=== PATIENT | male | born 1960 | race Caucasian/White ===

== ENCOUNTER 2016-09-21 19:24 | Emergency (ER) | payer OTHER ==
[~2016-09-21] VITALS: Ht 177.8 cm; Wt 86.6 kg
--- NOTE | 2016-09-21 19:51 | ED GI/GU/ABDOMINAL COMPLAINT ---
History of Present Illness General Chief Complaint: Abdominal Pain/Flank Pain Stated Complaint: ABD PAIN, +N/V Source: patient, family, old records Exam Limitations: no limitations Vital Signs & Intake/Output Vital Signs & Intake/Output Vital Signs Date Time Temp Pulse Resp B/P Pulse O2 O2 Flow FiO2 Ox Delivery Rate 09/21 2134 96.7 71 18 152/91 96 Room Air 09/21 2044 Room Air 09/219 98.6 100 16 198/110 100 Room Air Allergies Coded Allergies: Sulfa (Sulfonamide Antibiotics) (HIVES, RASH - FACE, MOUTH 09/21/16) amlodipine (LEGS WERE SWELLING, SEVERE HEARTBURN 09/21/16) Reconcile Medications Cyclobenzaprine HCl 10 MG TABLET 1 TAB PO PRN MUSCLE RELAXER (Reported) Ibuprofen 600 MG TABLET 1 TAB PO PRN PAIN/INFLAMMATION (Reported) with food Multivitamin (Multi-Day Vitamins) 1 EACH TABLET 1 TAB PO DAILY SUPPLEMENT ( Reported) Ondansetron (Zofran Odt) 4 MG TAB.RAPDIS 1 TAB SL TID PRN NAUSEA Pantoprazole Sodium (Protonix) 40 MG TABLET.DR 1 TAB PO DAILY GERD Ranitidine HCl (Heartburn Relief) 150 MG TABLET 1 TAB PO PRN GI (Reported) Tramadol HCl 50 MG TABLET 1 TAB PO PRN PAIN (Reported) Triage Note: PT TO ED FOR TWO HOURS OF N/V, REPORTING HE FELT NORMAL ALL DAY TODAY, TRIED TO TAKE A SIP OF MILK AND "IT WAS JUST WHITE FOAM THAT CAME OUT" REPORTS LNBM THIS AM, REPORTING INCREASING FLATULANCE AND BURPING FOR APPROX 2 HOURS TOO. Triage Nurses Notes Reviewed? yes Onset: Abrupt Duration: hour(s): (2), better, constant, waxing and waning Timing: recent history Quality/Severity: aching, burning, BLOATING Severity Numbers: 5 Location: generalized abdomen Radiation: no radiation Activities at Onset: eating Prior Abdominal Problems: similar symptoms (OVER THE PAST 6-7 MONTHS) No Modifying Factors: none Associated Symptoms: nausea/vomiting HPI: 56-year-old male with history of hypertension presents emergency room with his for evaluation complaining of a 2 hour history of sudden onset of bloating sudden and frequent belching nausea vomiting that came on after he had a sip of milk with dinner. Patient states he had an episode of vomiting prior to arrival and is feeling improved. He denies any diarrhea black or bloody stools. No abdominal pain at this time. His states that he has had similar episodes in the past attributed to reflux. The patient denies chest pain shortness of breath. No hematemesis. Patient's abdominal surgeries significant for a hernia repair, and testicular tumor removal. No fever no chills no sick contacts with similar symptoms. The patient does not smoke he reports a social alcohol use however denies recent use. The patient himself states she's had similar episodes in the past he has never been seen by GI. the patient had corned beef and cabbage at lunchtime today The patient is known to be hypertensive denies headache vision changes palpitations dizziness lightheadedness. He states he was taken off the amlodipine he was on the past 2 to leg swelling that has since resolved and is scheduled to see his primary care physician this week to begin a new blood pressure medication (JAQUELINE HUBBARD) Past History Travel History Traveled to [place] past 21 day No Medical History Any Pertinent Medical History? see below for history Neurological: NONE EENT: NONE Cardiovascular: hypertension Respiratory: NONE Gastrointestinal: GERD Hepatic: NONE Renal: NONE Musculoskeletal: CHRONIC BACK PAIN Psychiatric: NONE Endocrine: NONE Blood Disorders: NONE Cancer(s): NONE Surgical History Surgical History: HERNIA REPAIR, TESTICULAR TUMOR REMOVAL, BACK SURGERY Psychosocial History What is your primary language Panamanian Tobacco Use: Never used ETOH Use: denies use Illicit Drug Use: denies illicit drug use Family History Hx Contributory? No (JAQUELINE HUBBARD) Review of Systems Review of Systems Constitutional: Reports: see HPI. All Other Systems: Reviewed and Negative Comments Review of systems: See HPI, All other systems negative. Constitutional, no chills no fever, no malaise HEENT: no sore throat no congestion, Cardiovascular: No chest pain , no palpitation Skin, no jaundice no rashes, no change in skin Respiratory: No dyspnea no cough no sputum GI: nausea vomiting, no diarrhea, no bloating/constipation : No dysuria Muscle skeletal: No joint pain, no back pain, no neck pain, Neurologic: No numbness no headache Psych: No stress Heme/endocrine: No bruising no bleeding Immunology: No lymphadenopathy (JAQUELINE HUBBARD) Physical Exam Physical Exam General Appearance: well developed/nourished, alert, awake Gastrointestinal: normal bowel sounds, soft, non-tender Comments: Well-developed well-nourished person in no acute distress HEENT: Normal EENT exam; PERRL, EOMI, n HEAD is atraumatic. moist mucous membranes. Neck: Supple, normal range of motion Back: Nontender, no CVA tenderness. Full range of motion Cardiovascular: Regular rate and rhythms no murmurs rubs Respiratory: No respiratory distress. Patient speaking in full complete sentences. Breath sounds clear to auscultation bilaterally: NO W/R/R Abdomen: Soft, nontender nondistended, no appreciable organomegaly. Normal bowel sounds. No rebound/guarding, No appreciable enlargement of the abdominal aorta, No ascites. NEG MURPHYS SIGN, NO RLQ TENDERNESS Extremity: No edema, full range of motion of extremities Neuro: Alert oriented x3, motor sensory normal, There were no obvious focal neurologic abnormalities. Skin: No appreciable rash on exposed skin, skin is warm and dry. Psych: Mood and affect is normal, memory and judgment is normal. Core Measures ACS in differential dx? Yes Severe Sepsis Present: No Septic Shock Present: No (KATLYN PEARL,JAQUELINE) Progress Differential Diagnosis: AAA, AMI, appendicitis, biliary colic, bowel obstruction , colon cancer, cholecystitis, diverticulitis, gastritis, hepatitis, hernia, inflamm bowel dis, Charity-Dominique tear, pancreatitis, peptic ulcer, PUD/GERD, perforated viscous, SBO, MALIGNANCY GASTROENTERITIS Plan of Care: Orders Procedure Date/time Status TROPONIN LEVEL 09/21 1940 Complete LIPASE 09/21 1940 Complete HEPATIC FUNCTION PANEL 09/21 1940 Complete CBC WITHOUT DIFFERENTIAL 09/21 1940 Complete BASIC METABOLIC PANEL 09/21 1940 Complete AMYLASE 09/21 1940 Complete EKG 09/21 1940 Active Laboratory Tests 09/21/162021: Anion Gap 11, Estimated GFR > 60, BUN/Creatinine Ratio 23.3, Glucose 102 H, Calcium 9.6, Total Bilirubin 0.7, Direct Bilirubin 0.6 H, AST 74 H, ALT 124 H , Alkaline Phosphatase 46, Troponin I 0.02, Total Protein 7.6, Albumin 4.7, Amylase 41, Lipase 69, CBC w Diff NO MAN DIFF REQ, RBC 4.87, MCV 92.4, MCH 31.8 H, RDW 13.5, MPV 8.4, Gran % 77.0 H, Lymphocytes % 16.1 L, Monocytes % 6.2, Eosinophils % 0.5, Basophils % 0.2, Absolute Granulocytes 7.5 H, Absolute Lymphocytes 1.6, Absolute Monocytes 0.6, Absolute Eosinophils 0.1, Absolute Basophils 0, PUBS MCHC 34.4 Labs ordered patient medicated with Pepcid 20 IV Zofran 4 IV IV fluids. I discussed with him the possibility of obtaining a CAT scan at this time which both patient and his would rather hold off on at this time we will continue to monitor case was discussed with Dr. Reddy. 09/21/2016 10:02:17 PM patient reports symptoms have completely resolved we'll Pepcid Zofran. Feeling well tolerating by mouth challenge abdomen remained soft nontender. I discussed with him at length all of his results I discussed with the patient at length all of their results. I had an extensive conversation regarding need for close follow up with their primary care physician this week-whom he is scheduled to see on Wednesday as well as return precautions. I answered all of their questions, they feel comfortable with the plan and follow-up care. The patient will follow up with GI Dr. Ge. Prescription for Protonix Zofran provided comfortable with plan. Discussed with the patient risks and arms of elevated blood pressure again he is declining prescription for medication stating that he is scheduled to see his primary care physician on Wednesday regarding the same I discussed the medications that they will receive with the patient. I gave them signs and symptoms that could indicate an adverse reaction. I have advised them to limit their activities until they can see how they respond to the medication. (JAQUELINE HUBBARD) Initial ED EKG: NSR AT 80, NO ACUTE ST SEG CHANGES, NORMAL AXIS Prior EKG: unchanged (11/2003) (JAQUELINE HUBBARD) Departure Departure Time of Disposition: 2200 Disposition: HOME OR SELF CARE Condition: Stable Clinical Impression Primary Impression: Gastritis Secondary Impressions: Abdominal pain Referrals: Manoj EDWARDS MD (PCP/Family) JESSE GE MD Additional Instructions: Follow-up with your primary care physician as scheduled this week as well as stewardesses teacher Dr. Ge. Protonix as discussed Zofran as needed for nausea. These prescriptions were sent here pharmacy. [place] diet no fatty spicy greasy foods. Return anytime sooner with any concerns or worsening of your symptoms Departure Forms: Customer Survey General Discharge Information Prescriptions: Current Visit Scripts Pantoprazole Sodium (Protonix) 1 TAB PO DAILY #14 TAB Ondansetron (Zofran Odt) 1 TAB SL TID PRN NAUSEA #10 TAB (JAQUELINE HUBBARD) PA/PROFESSOR OF PHYSICAL EDUCATION Co-Sign Statement Statement: ED Attending supervision documentation- [] I saw and evaluated the patient. I have also reviewed all the pertinent lab results and diagnostic results. I agree with the findings and the plan of care as documented in the PA's/PROFESSOR OF PHYSICAL EDUCATION's documentation. [x] I have reviewed the ED Record and agree with the PA's/PROFESSOR OF PHYSICAL EDUCATION's documentation. [] Additions or exceptions (if any) to the PAs/PROFESSOR OF PHYSICAL EDUCATION's note and plan are summarized below: [] (DRU FUENTES,ZACHARY Boswell)
[2016-09-21 20:40] LABS: ABSOLUTE BASOPHIL COUNT 0 /CUMM (0.0-0.2); ABSOLUTE EOSINOPHIL COUNT 0.1 /CUMM (0.0-0.7); ABSOLUTE GRANULOCYTE CT 7.5 /CUMM (1.4-6.5); ABSOLUTE LYMPH COUNT 1.6 /CUMM (1.2-3.4); ABSOLUTE MONOCYTE COUNT 0.6 /CUMM (0.10-0.60); BASOPHIL % 0.2 % (0.0-2.0); EOSINOPHIL % 0.5 % (0-5); MEAN CORPUSCULAR HGB 31.8 PG (27.0-31.0); MEAN CORPUSCULAR HGB CONC 34.4 G/DL (33.0-37.0); MEAN CORPUSCULAR VOLUME 92.4 FL (80.0-94.0); MEAN PLATELET VOLUME 8.4 FL (7.4-10.4); PLATELET COUNT 224 /CUMM (130-400); RBC DISTRIBUTION WIDTH 13.5 % (11.5-14.5); RED BLOOD CELL CT 4.87 /CUMM (4.70-6.10); WHITE BLOOD CELL COUNT 9.7 /CUMM (4.8-10.8)
[2016-09-21] MEDS ORDERED: TRAMADOL HCL50 M1 PO (20:52)
[2016-09-21] MEDS ORDERED: MULTI-DAY VITA1 EACH PO (20:53)
[2016-09-21] MEDS ORDERED: CYCLOBENZAPRINE10 M1 PO (20:53)
[2016-09-21] MEDS ORDERED: IBUPROFEN600 M1 PO (20:53)
[2016-09-21] MEDS ORDERED: HEARTBURN RELI150 MG PO (20:55)
[2016-09-21 21:35] VITALS: BP 152/91
[2016-09-21] MEDS ORDERED: ZOFRAN ODT4 M1 SL (22:04)
[2016-09-21] MEDS ORDERED: PROTONIX40 M3 PO (22:04)
[2016-12-21] MEDS ORDERED: LISINOPRIL20 M1 PO (09:27)
[2016-12-21] MEDS ORDERED: PENICILLIN V P500 M1 PO (09:28)
[2016-12-24] MEDS ORDERED: PERCOCET 5-3251 EACH PO (05:30)
== END 2016-09-21 22:13 ==
LOC: ERH 19:24
PROVIDERS: Pediatrics
DX: K29.70 Gastritis, unspecified, without bleeding (principal)
CPT/HCPCS: 93005; 93010; 96361; 96374; 96375; J2405

== ENCOUNTER 2016-12-25 05:11 | Inpatient (IN) | payer OTHER ==
[~2016-12-25] VITALS: Ht 177.8 cm; Wt 83.9 kg
[~2016-12-25 05:11] MED LIST: CYCLOBENZAPRINE10 M1 PO; HEARTBURN RELI150 MG PO; IBUPROFEN600 M1 PO; LISINOPRIL20 M1 PO; MULTI-DAY VITA1 EACH PO; PENICILLIN V P500 M1 PO; PERCOCET 5-3251 EACH PO; PROTONIX40 M3 PO; TRAMADOL HCL50 M1 PO; ZOFRAN ODT4 M1 SL
--- NOTE | 2016-12-25 05:23 | NUR ---
PT TO ED C/O SHARP ABD PAIN LOW RIGHT SIDE AND ACING PRESSURE IN THE EPIGASTRIC AREA "SINCE NOON YESTERDAY" WAS SEEN HERE NIGHT BEFORE LAST, DX WITH KIDNEY STONES. HAS BEEN TAKING PERCOCETS, STATES THEY ARE MAKING UPPER ABDOMINAL PAIN WORSE. +NAUSEA, DENIES VOMITTING DIARRHEA. LAST BM WAS LAST EVENING. STATES HENATURIA IS IMPROVING
--- NOTE | 2016-12-25 05:24 | NUR ---
IV ACCESS ESTABLISHED BY LUIZ WILSON H 20G LH PT C/O FEELING BLOATED AND STATES "HAVEN'T SLEPT IN A WEEK"
--- NOTE | 2016-12-25 05:31 | NUR ---
PER PT SEEN WEDNESDAY WELL APPEARS UNCOMF BREATHING THROUGH PURSED LIPS/.
--- NOTE | 2016-12-25 06:05 | NUR ---
Emergency Dept UC Admit Note: To be admitted to [facility] by DR. VALLE with ASTHMA EXACERBATION, HYPOXIA as the diagnosis, to TELE 1NO #[id number] location. Nursing Regional Extension Service Specialist and admitting notified 12/25/16 at 0524
--- NOTE | 2016-12-25 06:06 | NUR ---
BLOODWORK DRAWN(1SST; 1 PINK, 1 JAUREGUI, 1 BLUE, 1. LAV) SPECIMENS SENT TO LAB.
[2016-12-25 06:18] LABS: ABSOLUTE BASOPHIL COUNT 0 /CUMM (0.0-0.2); ABSOLUTE EOSINOPHIL COUNT 0.1 /CUMM (0.0-0.7); ABSOLUTE GRANULOCYTE CT 4.3 /CUMM (1.4-6.5); ABSOLUTE MONOCYTE COUNT 0.8 /CUMM (0.10-0.60); BASOPHIL % 0.3 % (0.0-2.0); EOSINOPHIL % 1.1 % (0-5); GRANULOCYTE % 69.8 % (42.2-75.2); HEMATOCRIT 38.3 % (42-52); MEAN CORPUSCULAR HGB 31.4 PG (27.0-31.0); MEAN CORPUSCULAR HGB CONC 34.2 G/DL (33.0-37.0); MEAN CORPUSCULAR VOLUME 91.8 FL (80.0-94.0); MEAN PLATELET VOLUME 7.6 FL (7.4-10.4); PLATELET COUNT 233 /CUMM (130-400); RBC DISTRIBUTION WIDTH 12.4 % (11.5-14.5); RED BLOOD CELL CT 4.18 /CUMM (4.70-6.10); WHITE BLOOD CELL COUNT 6.2 /CUMM (4.8-10.8)
--- NOTE | 2016-12-25 06:35 | ED GI/GU/ABDOMINAL COMPLAINT ---
History of Present Illness General Chief Complaint: Abdominal Pain/Flank Pain Stated Complaint: ABD PAIN HX KIDNEY STONES SEEN HERE YESTERDAY Source: patient, family, old records Exam Limitations: no limitations Vital Signs & Intake/Output Vital Signs & Intake/Output Vital Signs Date Time Temp Pulse Resp B/P B/P Pulse O2 O2 Flow FiO2 Mean Ox Delivery Rate 12/251 98.0 67 20 140/78 98 Room Air 12/25 1833 75 140/70 12/25 1419 97.8 73 18 142/70 97 Room Air 12/25 1216 160/80 12/25 1001 98.4 70 20 162/98 97 Room Air 12/25 0840 97.9 66 18 154/85 98 Room Air 12/25 0640 78 20 172/94 98 Room Air 12/25 0517 98.1 73 18 170/99 100 Room Air Allergies Coded Allergies: NSAIDS (Non-Steroidal Anti-Inflamma (PMH OF GASTRIC ULCER 12/25/16) Sulfa (Sulfonamide Antibiotics) (HIVES, RASH - FACE, MOUTH 09/21/16) amlodipine (LEGS WERE SWELLING, SEVERE HEARTBURN 09/21/16) Triage Note: PT TO ED C/O SHARP ABD PAIN LOW RIGHT SIDE AND ACING PRESSURE IN THE EPIGASTRIC AREA "SINCE NOON YESTERDAY" WAS SEEN HERE NIGHT BEFORE LAST, DX WITH KIDNEY STONES. HAS BEEN TAKING PERCOCETS, STATES THEY ARE MAKING UPPER ABDOMINAL PAIN WORSE. +NAUSEA, DENIES VOMITTING DIARRHEA. LAST BM WAS LAST EVENING. STATES HENATURIA IS IMPROVING Triage Nurses Notes Reviewed? yes Onset: Just prior to arrival Duration: hour(s):, constant, continues in ED Timing: recent history Quality/Severity: fullness, severe Location: epigastric, generalized abdomen Radiation: chest, epigastric Activities at Onset: after Percocet Past Sexual History: Unobtainable at this time Modifying Factors: Worsens With: palpation. Associated Symptoms: abdominal pain, loss of appetite, nausea/vomiting HPI: Several hours prior to admission patient took Percocet for epigastric pain described as aching constant nonradiating not obtaining relief so he took another making the pain worse with associated bloating and distention radiating to his chest and throat. He denies fever chills shortness of breath headache dysuria rash bleeding. (DERRICK FUENTES,GERALDO) Reconcile Medications Cyclobenzaprine HCl 10 MG TABLET 1 TAB PO PRN MUSCLE RELAXER (Reported) Lisinopril 20 MG TABLET 1 TAB PO DAILY HEART (Reported) Multivitamin (Multi-Day Vitamins) 1 EACH TABLET 1 TAB PO DAILY SUPPLEMENT ( Reported) Ondansetron (Zofran Odt) 4 MG TAB.RAPDIS 1 TAB SL TID PRN NAUSEA Oxycodone HCl/Acetaminophen (Percocet 5-325 MG Tablet) 5 MG-325 MG TABLET 1 TAB PO 4XDP PRN PAIN TEN...[id number] Pantoprazole Sodium (Protonix) 40 MG TABLET.DR 1 TAB PO DAILY GERD Tramadol HCl 50 MG TABLET 1 TAB PO PRN PAIN (Reported) (CORA FUENTES,SPENCER) Past History Travel History Traveled to [place] past 21 day No Medical History Any Pertinent Medical History? see below for history Neurological: NONE EENT: NONE Cardiovascular: hypertension Respiratory: NONE Gastrointestinal: GERD, ULCER Hepatic: NONE Renal: nephrolithiasis Musculoskeletal: CHRONIC BACK PAIN Psychiatric: NONE Endocrine: NONE Blood Disorders: NONE Cancer(s): NONE Surgical History Surgical History: HERNIA REPAIR, TESTICULAR TUMOR REMOVAL, BACK SURGERY Psychosocial History What is your primary language Albanian Tobacco Use: Current Daily Use Daily Tobacco Use Amount/Type: => 5 Cigarettes daily ETOH Use: occasional use Illicit Drug Use: denies illicit drug use Family History Hx Contributory? No (GERALDO MEZA MD) Review of Systems Review of Systems Constitutional: Reports: see HPI, malaise. EENTM: Reports: no symptoms. Respiratory: Reports: no symptoms. Cardiovascular: Reports: no symptoms. GI: Reports: see HPI, abdominal pain, bloating, nausea. Genitourinary: Reports: no symptoms. Musculoskeletal: Reports: no symptoms. Skin: Reports: no symptoms. Neurological/Psychological: Reports: no symptoms. Hematologic/Endocrine: Reports: no symptoms. Immunologic/Allergic: Reports: no symptoms. All Other Systems: Reviewed and Negative (GERALDO MEZA MD) Physical Exam Physical Exam General Appearance: well developed/nourished, alert, awake, anxious, severe distress, obese Head: atraumatic, normal appearance Eyes: Bilateral: normal appearance, PERRL, EOMI, normal inspection. Ears, Nose, Throat, Mouth: hearing grossly normal, moist mucous membrane Neck: normal inspection, supple, full range of motion, normal alignment Respiratory: normal breath sounds, chest non-tender, no respiratory distress, quiet respiration, lungs clear Cardiovascular: regular rate/rhythm, normal peripheral pulses, norml femoral pulses equa Peripheral Pulses: 4+ carotid (R), 4+ carotid (L) Gastrointestinal: normal bowel sounds, soft, distention, tenderness (diffuse/ epigastric) Male Genitals: normal genitalia, normal prostate Back: normal inspection, normal range of motion Extremities: normal range of motion, no ligament instability Neurologic/Psych: no motor/sensory deficits, awake, alert, oriented x 3, normal gait, normal mood/affect, fur vault attendant II-XII nml as tested Skin: intact, normal color, warm/dry Core Measures ACS in differential dx? Yes ASA ordered for poss ACS? No-ACS ruled out, No-other contraindication Severe Sepsis Present: No Septic Shock Present: No (DERRICK FUENTES,GERALDO) Progress Differential Diagnosis: biliary colic, bowel obstruction, gastritis, PUD/GERD Plan of Care: Orders Procedure Date/time Status Nothing by Mouth 12/25 L Active Teach/Educate 12/25 1034 Active Pain Treatment and Response 12/25 1034 Active Nutritional Intake, Monitor 12/25 1034 Active Isolation 12/25 1034 Active Patient Care Conference 12/25 1034 Active Activity/Ambulation 12/25 1034 Active Pathway - chart 12/25 0922 Active House Staff 12/25 0922 Active Patient Data 12/25 0922 Active Code Status 12/25 0922 Active Patient Data 12/25 0915 Active ED Holding Orders 12/25 0913 Active Admit to inpatient 12/25 0913 Active Vital Signs 12/25 0913 Active Code Status 12/25 0913 Complete Add-on Test (ER Only) 12/25 0847 Active Add-on Test (ER Only) 12/25 0626 Active URINALYSIS 12/25 0621 Complete EKG 12/25 0620 Active TROPONIN LEVEL 12/25 0600 Complete LIPID PANEL 12/25 0600 Complete LIPASE 12/25 0541 Complete COMPREHENSIVE METABOLIC PANEL 12/25 0541 Complete CBC WITHOUT DIFFERENTIAL 12/25 0541 Complete VTE Mechanical Prophylaxis 12/25 UNK Active Vital Signs 12/25 UNK Complete MISTAKE 12/25 UNK Active Intake & Output 12/25 UNK Active PHARMACY COMMUNICATION FORM 12/25 UNK Active MISSING MEDICATION FORM 12/25 UNK Active Current Medications Sig/Jessica Start time Last Medication Dose Stop Time Status Admin Lisinopril 20 MG 1900 12/25 1900 AC 12/25 (Prinivil) 1833 Enoxaparin Sodium 40 MG DAILY 12/25 1120 AC 12/25 (Lovenox) 1523 Hydromorphone HCl 1 MG Q4P PRN 12/25 1000 AC 12/25 (Dilaudid) 1625 Ondansetron HCl 4 MG Q6P PRN 12/25 1000 AC (Zofran) Pantoprazole Sodium 40 MG DAILY 12/25 1000 AC 12/25 (Protonix) 1523 Dextrose/Sodium 1,000 ML Q6H 12/25 0915 AC 12/25 Chloride 1834 (D5W-1/2 Normal Saline 1000ML) Laboratory Tests 12/25/16 0630: Urine Color YEL, Urine Clarity CLEAR, Urine pH 7.5, Ur Specific Treece 1.015, Urine Protein NEG, Urine Ketones TRACE H, Urine Nitrite NEG, Urine Bilirubin NEG, Urine Urobilinogen 1.0, Ur Leukocyte Esterase NEG, Ur Microscopic EXAM NOT REQUIRED, Urine Hemoglobin NEG, Urine Glucose NEG 12/25/16 0600: Anion Gap 9, Estimated GFR > 60, BUN/Creatinine Ratio 15.7, Glucose 113 H, Calcium 8.4, Total Bilirubin 0.7, AST 55, ALT 105 H, Alkaline Phosphatase 62, Troponin I < 0.01, Total Protein 6.4, Albumin 3.8, Globulin 2.6, Albumin/ Globulin Ratio 1.5, Triglycerides 102, Cholesterol 121, LDL Cholesterol, Calc 78 , HDL Cholesterol 23 L, Cholesterol/HDL Ratio 5 H, Lipase 1189 H, CBC w Diff NO MAN DIFF REQ, RBC 4.18 L, MCV 91.8, MCH 31.4 H, RDW 12.4, MPV 7.6, Gran % 69.8, Lymphocytes % 16.1 L, Monocytes % 12.7 H, Eosinophils % 1.1, Basophils % 0.3, Absolute Granulocytes 4.3, Absolute Lymphocytes 1.0 L, Absolute Monocytes 0.8 H, Absolute Eosinophils 0.1, Absolute Basophils 0, PUBS MCHC 34.2 7:15 AM SIGNED OUT TO ME PENDING U/S, ADMISSION FOR PANCREATITIS (CORA FUENTES,SPENCER) Initial ED EKG: normal axis, normal intervals, normal p-waves, normal QRS complex, normal sinus rhythm, no ST T wave changes Prior EKG: unchanged Rhythm Strip: normal sinus rhythm Hand-Off Endorsed To: SPENCER SHEPHERD MD Endorsed Time: 0700 Pending: ultrasound (GERALDO MEZA MD) Diagnostic Imaging: Viewed by Me: Ultrasound. Discussed w/RAD: Ultrasound. Radiology Impression: PATIENT: JUAN GUERRA JR PRESENT AGE: 56 PATIENT ACCOUNT NO: [id number] : 61 LOCATION: [facility] ORDERING PHYSICIAN: GERALDO MEZA MD SERVICE DATE: 12/25/16 EXAM TYPE: US - US-LIMITED ABDOMEN EXAMINATION: US ABDOMEN LIMITED CLINICAL INFORMATION: Epigastric pain, lipase 1200.. COMPARISON: CT abdomen and pelvis 12/24/2012 TECHNIQUE: Real-time imaging of the right upper quadrant abdominal viscera. FINDINGS: PANCREAS: The visualized pancreatic body is unremarkable, the remainder of the pancreas is obscured by bowel gas. No definite peripancreatic fluid collection is identified. LIVER: There is diffuse increased liver parenchymal echogenicity, consistent with hepatic steatosis. There is a focal area in the right lobe of the liver adjacent to the gallbladder fossa measuring approximately 1.5 x 1.2 x 0.9 cm which may represent focal fatty sparing. The liver is normal in size and contour. No biliary ductal dilatation. GALLBLADDER: The gallbladder is physiologically distended with echogenic bile. No wall thickening or pericholecystic fluid is identified. COMMON BILE DUCT: Normal in caliber measuring 0.4 cm in diameter. RIGHT KIDNEY: There is a 1.3 x 1.0 x 1.2 cm cyst in the lower pole of the right kidney. No hydronephrosis. No renal calculi or focal parenchymal lesions. The kidney measures 11.2 cm in maximum dimension. FREE FLUID: None. IMPRESSION: 1. Limited visualization of the pancreas due to overlying bowel gas. No large peripancreatic fluid collection is identified. 2. Hepatic steatosis with likely focal geographic region of fatty sparing adjacent to the gallbladder fossa. 3. The gallbladder is filled with echogenic material likely representing sludge. DICTATED BY: ARTEMIO TINOCO MD DATE/TIME DICTATED:12/25/16817 MEAT SERVICE TEAM MEMBER:NATHEN DATE/TIME TRANSCRIBED:12/25/16817 CONFIDENTIAL, DO NOT COPY WITHOUT APPROPRIATE AUTHORIZATION. <Electronically signed in Other Vendor System> SIGNED BY: ARTEMIO TINOCO MD 12/25/16 0830 (SPENCER SHEPHERD MD) Departure Departure Disposition: STILL A PATIENT Condition: Stable Clinical Impression Primary Impression: Pancreatitis Qualifiers: Chronicity: acute Pancreatitis type: unspecified pancreatitis type Acute pancreatitis complication: unspecified Qualified Code: K85.90 - Acute pancreatitis without necrosis or infection, unspecified Referrals: Manoj EDWARDS MD (PCP/Family) Departure Forms: Customer Survey General Discharge Information (DERRICK FUENTES,GERALDO) Departure Time of Disposition: 911 Admission Note Spoke With: MELISSA DAMON MD Documentation of Exam: Documentation of any treatments & extenuating circumstances including Concerns Regarding Discharge (functional status, medication knowledge or non-compliance, living conditions, etc.) that warrant an admission rather than observation: [NPO , IV FLUIDS, PAIN CONTROL, MONITOR I/O, GI CONSULTATION, F/U LIPID PANEL] (SPENCER SHEPHERD MD)
--- NOTE | 2016-12-25 06:38 | NUR ---
ONLY BRIEF RELIEF FROM DILAUDID, PEPCID AND REGLAN. MD AWARE REMED WITH 2ND LITER REGLAN AND MORPHINE. CO BLOATING FEELING AND UNCOMFORTABLENESS TO UPER ABD, EKG DONE. VSS URINE 200 CCS TRIO SENT
--- NOTE | 2016-12-25 07:49 | NUR ---
PT AWARE OF NPO STATUS.
--- NOTE | 2016-12-25 08:30 | ULTRASOUND REPORT ---
EXAMINATION: US ABDOMEN LIMITED CLINICAL INFORMATION: Epigastric pain, lipase 1200.. COMPARISON: CT abdomen and pelvis 12/24/2012 TECHNIQUE: Real-time imaging of the right upper quadrant abdominal viscera. FINDINGS: PANCREAS: The visualized pancreatic body is unremarkable, the remainder of the pancreas is obscured by bowel gas. No definite peripancreatic fluid collection is identified. LIVER: There is diffuse increased liver parenchymal echogenicity, consistent with hepatic steatosis. There is a focal area in the right lobe of the liver adjacent to the gallbladder fossa measuring approximately 1.5 x 1.2 x 0.9 cm which may represent focal fatty sparing. The liver is normal in size and contour. No biliary ductal dilatation. GALLBLADDER: The gallbladder is physiologically distended with echogenic bile. No wall thickening or pericholecystic fluid is identified. COMMON BILE DUCT: Normal in caliber measuring 0.4 cm in diameter. RIGHT KIDNEY: There is a 1.3 x 1.0 x 1.2 cm cyst in the lower pole of the right kidney. No hydronephrosis. No renal calculi or focal parenchymal lesions. The kidney measures 11.2 cm in maximum dimension. FREE FLUID: None. IMPRESSION: 1. Limited visualization of the pancreas due to overlying bowel gas. No large peripancreatic fluid collection is identified. 2. Hepatic steatosis with likely focal geographic region of fatty sparing adjacent to the gallbladder fossa. 3. The gallbladder is filled with echogenic material likely representing sludge.
--- NOTE | 2016-12-25 09:01 | NUR ---
DR. CORA SMITH FOR [facility], CONT TO AWAIT ADMIT.
--- NOTE | 2016-12-25 09:22 | History & Physical ---
TANK MELARA 12/25/16 0922: General Information and HPI MD Statement: I have seen and personally examined JUAN GUERRA and documented this H&P. The patient is a 56 year old M who presented with a patient stated chief complaint of nausea, epigastric abdominal pain. Source of Information: patient Exam Limitations: no limitations History of Present Illness: This is a 56-year-old gentleman with past medical history significant for hypertension, GERD, chronic back pain who presents to the hospital with epigastric abdominal pain and nausea. According to the patient, he started having epigastric abdominal pain this morning. He describes it as 7/10 aching, constant, nonradiating pain. He also had nausea and bloating denies any vomitus. Denies fever, chills, headache, shortness of breath, chest pain, diarrhea. Drinks socially denies history of binge drinking. Denies any history of pancreatitis. Underwent EGD and biopsy 11/10/2016 showed moderate erosive gastritis. He was started on Protonix, was instructed to maintain antireflux regimen and avoid NSAIDs. Upon presentation to the ED, he was found to have elevated lipase, he was made nothing by mouth and received IV hydromorphone and IV metoclopramide in the ED, nausea has resolved. Abdominal pain improved to 5/10 at a time of our interview. Of note, he visits at [facility] ED the day before admission for pain and kidney stone, CT abdomen and pelvis was obtained which showed Few mildly prominent subcentimeter mesenteric lymph nodes in the right lower quadrant of uncertain etiology likely to be reactive in nature, Normal appendix. And Few tiny bilateral renal calculi, without hydronephrosis. PANCREAS: Unremarkable. Allergies/Medications Allergies: Coded Allergies: NSAIDS (Non-Steroidal Anti-Inflamma (PMH OF GASTRIC ULCER 12/25/16) Sulfa (Sulfonamide Antibiotics) (HIVES, RASH - FACE, MOUTH 09/21/16) amlodipine (LEGS WERE SWELLING, SEVERE HEARTBURN 09/21/16) Home Med list Cyclobenzaprine HCl 10 MG TABLET 1 TAB PO PRN MUSCLE RELAXER (Reported) Lisinopril 20 MG TABLET 1 TAB PO DAILY HEART (Reported) Multivitamin (Multi-Day Vitamins) 1 EACH TABLET 1 TAB PO DAILY SUPPLEMENT ( Reported) Ondansetron (Zofran Odt) 4 MG TAB.RAPDIS 1 TAB SL TID PRN NAUSEA Oxycodone HCl/Acetaminophen (Percocet 5-325 MG Tablet) 5 MG-325 MG TABLET 1 TAB PO 4XDP PRN PAIN TEN...[id number] Pantoprazole Sodium (Protonix) 40 MG TABLET.DR 1 TAB PO DAILY GERD Tramadol HCl 50 MG TABLET 1 TAB PO PRN PAIN (Reported) Past History Travel History Traveled to [place] past 21 day No Medical History Neurological: NONE EENT: NONE Cardiovascular: hypertension Respiratory: NONE Gastrointestinal: GERD, ULCER Hepatic: NONE Renal: nephrolithiasis Musculoskeletal: CHRONIC BACK PAIN Psychiatric: NONE Endocrine: NONE Blood Disorders: NONE Cancer(s): NONE Surgical History Surgical History: HERNIA REPAIR, TESTICULAR TUMOR REMOVAL, BACK SURGERY Past Family/Social History Psychosocial History ETOH Use: occasional use Illicit Drug Use: denies illicit drug use Sexual History Past Sexual History Unobtainable at this time Review of Systems Review of Systems Constitutional: Denies: chills, diaphoresis, fever, malaise, weakness, unexplained weight loss. EENTM: Reports: no symptoms. Cardiovascular: Reports: no symptoms. Denies: chest pain, edema, orthopena, palpitations, peripheral edema, syncope. Respiratory: Reports: no symptoms. GI: Reports: bloating, nausea. Denies: constipation, diarrhea, distention, bowel incontinence, melena, bloody stool, changes in stool, vomiting, steatorrhea. Genitourinary: Reports: no symptoms. Musculoskeletal: Reports: no symptoms. Skin: Reports: no symptoms. Neurological/Psychological: Reports: no symptoms. Hematologic/Endocrine: Reports: no symptoms. Immunologic/Allergic: Reports: no symptoms. All Other Systems: Reviewed and Negative Exam & Diagnostic Data Last 24 Hrs of Vital Signs/I&O Vital Signs Date Time Temp Pulse Resp B/P B/P Pulse O2 O2 Flow FiO2 Mean Ox Delivery Rate 12/25 0840 97.9 66 18 154/85 98 Room Air 12/25 0640 78 20 172/94 98 Room Air 12/25 0517 98.1 73 18 170/99 100 Room Air Intake & Output 12/25 1600 12/25 0800 12/25 0000 Intake Total 1050 Output Total 200 Balance 850 Intake, IV 1050 Output, Urine 200 Patient 185 lb Weight Weight Reported by Patient Measurement Method Physical Exam General Appearance Alert, Oriented X3, Cooperative, No Acute Distress Skin No Rashes, No Breakdown, No Significant Lesion Skin Temp/Moisture Exam: Warm/Dry Sepsis Skin Exam (color): Normal for Ethnicity HEENT Atraumatic, PERRLA, EOMI, Mucous Membr. moist/pink Neck Supple, No JVD, No thryomegaly, +2 Carotid Pulse wo Bruit, No LAD Lymphatic Axillary nl, Cervical nl Cardiovascular Regular Rate, Normal S1, Normal S2, No Murmurs Lungs Clear to Auscultation, Normal Air Movement Abdomen Normal Bowel Sounds, Soft, No Hepatospenomegaly, No Masses, Mild tenderness to palpation on epigastric region, Distended Neurological Normal Speech, Strength at 5/5 X4 Ext, Normal Tone, Sensation Intact, Cranial Nerves 3-12 NL, Reflexes 2+ Extremities No Clubbing, No Cyanosis, No Edema, Normal Pulses, No Tenderness/ Swelling Vascular Normal Pulses, Pulses Symmetrical Last 24 Hrs of Labs/Piero: Laboratory Tests 12/25/16 0630: Urine Color YEL, Urine Clarity CLEAR, Urine pH 7.5, Ur Specific [place] 1.015, Urine Protein NEG, Urine Ketones TRACE H, Urine Nitrite NEG, Urine Bilirubin NEG, Urine Urobilinogen 1.0, Ur Leukocyte Esterase NEG, Ur Microscopic EXAM NOT REQUIRED, Urine Hemoglobin NEG, Urine Glucose NEG 12/25/16 0600: Anion Gap 9, Estimated GFR > 60, BUN/Creatinine Ratio 15.7, Glucose 113 H, Calcium 8.4, Total Bilirubin 0.7, AST 55, ALT 105 H, Alkaline Phosphatase 62, Troponin I < 0.01, Total Protein 6.4, Albumin 3.8, Globulin 2.6, Albumin/ Globulin Ratio 1.5, Triglycerides Pending, Cholesterol Pending, LDL Cholesterol, Calc Pending, HDL Cholesterol Pending, Cholesterol/HDL Ratio Pending, Lipase 1189 H, CBC w Diff NO MAN DIFF REQ, RBC 4.18 L, MCV 91.8, MCH 31.4 H, RDW 12.4, MPV 7.6, Gran % 69.8, Lymphocytes % 16.1 L, Monocytes % 12.7 H, Eosinophils % 1.1, Basophils % 0.3, Absolute Granulocytes 4.3, Absolute Lymphocytes 1.0 L, Absolute Monocytes 0.8 H, Absolute Eosinophils 0.1, Absolute Basophils 0, PUBS MCHC 34.2 Diagnostic Data EKG Results Sinus rhythm, rate 66, T-wave inversion in V1 and 3 (also present on previous EKG) no acute ST-T wave changes. QTC 453. Other Results US - US-LIMITED ABDOMEN 1. Limited visualization of the pancreas due to overlying bowel gas. No large peripancreatic fluid collection is identified. 2. Hepatic steatosis with likely focal geographic region of fatty sparing adjacent to the gallbladder fossa. 3. The gallbladder is filled with echogenic material likely representing sludge. Assessment/Plan Assessment: This is a 56-year-old gentleman with past medical history significant for hypertension, GERD, chronic back pain who presents to the hospital with epigastric abdominal pain and nausea. Upon presentation to the ED, was found to have lipase level of 1189. Abdominal ultrasound showed hepatic steatosis had gallbladder sludge. He was made nothing by mouth and received IV hydromorphone and IV metoclopramide after which his symptoms improved. Abdomen/pelvic CT was obtained the day prior to admission (when he presented to the ED for kidney stone )which was unremarkable for any pathology in his pancreas. Problem list * Acute pancreatitis * Hypertension * Chronic back pain * GERF/Gastritis Plan * Vital signs * Continue with IV hydration * IV Zofran 4 mg q6 prn for nausea * IV hydromorphone 1 mg every 4hr prn for pain management * Monitor electrolytes and replete accordingly * Consider GI consult if symptoms do not improve within 24-48 hours. * Following Lipid profile results * DVT prophylaxis at all times * Patient is full code As Ranked By This Provider Problem List: 1. Gastritis 2. Abdominal pain 3. Pancreatitis Qualifiers Chronicity: acute Pancreatitis type: unspecified pancreatitis type Acute pancreatitis complication: unspecified Qualified Code: K85.90 - Acute pancreatitis without necrosis or infection, unspecified Core Measures/Miscellaneous Acute Coronary Syndrome ACS Diagnosis: No Cerebrovascular Accident CVA/TIA Diagnosis: No Congestive Heart Failure CHF Diagnosis: No VTE (View Protocol) VTE Risk Factors: Age > 40 [facility] prophylaxis d/t: No contraindications No VTE Pharm Prophylaxis d/t: No contraindications VTE Diagnosis: No VTE Type: NONE VTE Confirmed by (Test): NONE Sepsis (View Protocol) Severe Sepsis Present: No Septic Shock Septic Shock Present: No Miscellaneous Documentation Attending Case Discussed With: MELISSA DAMON MD Primary Care Physician: Manoj EDWARDS MD Patient sees these Specialists . Level of Patient Care: General Medicine MELISSA DAMON 12/25/16 1102: Attending MD Review Statement Attending Statement Attending MD Statement: examined this patient, discuss w/resident/PA/DIRECTOR SKILLS, agreed w/resident/PA/DIRECTOR SKILLS, discussed with family, reviewed EMR data (avail), discussed with nursing, discussed with case mgmt, reviewed images, amended to note Attending Assessment/Plan: Patient admitted for acute pancreatitis lipase 1187 elevated on admission, NPO , IVF Aggressive hydration, pain control. add on triglycerides. resume home meds, PPI daily. Maalox prn nausea meds. gi/dvt prophyalxis full code.
--- NOTE | 2016-12-25 09:43 | NUR ---
PT TO ROOM [id number]
--- NOTE | 2016-12-25 09:58 | NUR ---
REPORT GIVEN TO JORGE, PT STABLE CHJANGED BACK INTO HOSPITAL GARB, ABD SOFT BUT SL DISTENDED,
--- NOTE | 2016-12-25 10:05 | NUR ---
PER JORGE OK TO NOT HANG D5 1/2 NS UNTIL ARRIVAL TO FLOOR.
[2016-12-25 12:16] VITALS: BP 160/80
--- NOTE | 2016-12-25 12:42 | NUR ---
PATIENT ADMITTED FROM ER AT APPROX 1140, C/O 6/[address] DAMON IN ROOM AT THIS TIME, DOES NOT WISH TO GIVE PATIENT MORE PAIN MEDICATION AND "WILL WATCH AND SEE", PATIENT ORIENTED TO ROOM, CALL BOURGEOIS IN REACH, IVF STARTED, B/P ELEVATED AT 150/100, HAD NOT TAKEN B/P MEDS OF YET, PATIENT ALSO VERY TIRED FROM SLEEPNESS NIGHT, LEFT TO SLEEP TIMES 1 HOUR, RECHECK OF PRESSURE 160/80, WILL GIVE MEDICATION UPON ARRIVAL FROM PHARMACY, STILL WITH C/O PAIN, MEDICATION GIVEN, SAFETY MAINTAINED.
[2016-12-25 14:19] VITALS: BP 142/70
[2016-12-25 22:01] VITALS: BP 140/78
[2016-12-26 06:28] VITALS: BP 142/80
--- NOTE | 2016-12-26 09:06 | PN- Housestaff ---
SUSAN WYNN 12/26/16 0906: Subjective Follow-up For: Acute pancreatitis Complaints: pain scale (0-10) Subjective: patient was seen and examined this morning. He is alert awake and oriented to time place and person. No acute events overnight. Patient denies any abdominal pain, epigastric discomfort, nausea, vomiting. He feels much better this morning. He offers no complaints. He denied any fever, chills, constipation or diarrhea. Vitals remained stable. Afebrile, heart rate 70, respiratory rate 20, blood pressure 142/80, saturating at 97 on room air. Review of Systems Constitutional: Reports: no symptoms. Objective Last 24 Hrs of Vital Signs/I&O Vital Signs Date Time Temp Pulse Resp B/P B/P Pulse O2 O2 Flow FiO2 Mean Ox Delivery Rate 12/26 0628 98.1 74 20 142/80 97 Room Air 12/25 2201 98.0 67 20 140/78 98 Room Air 12/25 1833 75 140/70 12/25 1419 97.8 73 18 142/70 97 Room Air 12/25 1216 160/80 Intake & Output 12/26 1600 12/26 0800 12/26 0000 Intake Total 1200 1200 Output Total 600 775 Balance 600 425 Intake, IV 1200 1200 Intake, Oral 0 0 Number 0 0 Bowel Movements Output, Urine 600 775 Physical Exam General Appearance: Alert, Oriented X3, Cooperative, No Acute Distress Skin: No Rashes, No Breakdown HEENT: Atraumatic, PERRLA, EOMI, Mucous Membr. moist/pink Neck: Supple, No JVD Lymphatic: Cervical nl Cardiovascular: Normal S1, Normal S2 Lungs: Normal Air Movement Abdomen: Normal Bowel Sounds, Soft, No Tenderness Extremities: No Clubbing, No Cyanosis, No Edema Vascular: Pulses Symmetrical Current Medications: Current Medications Sig/Jessica Start time Last Medication Dose Route Stop Time Status Admin Acetaminophen 650 MG Q4P PRN 12/26 1130 UNVr PO Acetaminophen 1,000 MG ONCE ONE 12/26 0615 DC 12/26 N/A 1 UNIT IV 12/26 06 0615 Acetaminophen 1,000 MG ONCE ONE 12/25 1715 DC 12/25 N/A 1 UNIT IV 12/25 1729 1800 Al Hydroxide/Mg 30 ML Q4-6 PRN PRN 12/26 1130 UNVr Hydroxide PO Dextrose/Sodium 1,000 ML Q6H 12/25 0915 AC 12/26 Chloride IV 0853 Enoxaparin Sodium 40 MG DAILY 12/25 1120 AC 12/26 SC 0859 Hydromorphone HCl 1 MG Q4P PRN 12/25 1000 AC 12/25 IV 1625 Lisinopril 20 MG 1900 12/25 1900 AC 12/25 PO 1833 Lisinopril 20 MG DAILY 12/25 1000 DC PO Ondansetron HCl 4 MG Q6P PRN 12/25 1000 AC IV Pantoprazole Sodium 40 MG DAILY 12/25 1000 AC 12/26 IV 0855 Last 24 Hrs of Lab/Piero Results Last 24 Hrs of Labs/Mics: Laboratory Tests 12/26/16 1035: Sodium Pending, Potassium Pending, Chloride Pending, Carbon Dioxide Pending, Anion Gap Pending, BUN Pending, Creatinine Pending, BUN/Creatinine Ratio Pending , Lipase Pending Assessment/Plan Assessment: This is a 56-year-old gentleman with past medical history significant for hypertension, GERD, chronic back pain who presents to the hospital with epigastric abdominal pain and nausea. Upon presentation to the ED, was found to have lipase level of 1189. CBC BEP normal Abdominal ultrasound showed hepatic steatosis had gallbladder sludge. He was made nothing by mouth and received IV hydromorphone and IV metoclopramide after which his symptoms improved. Abdomen/pelvic CT was obtained the day prior to admission (when he presented to the ED for kidney stone )which was unremarkable for any pathology in his pancreas. Problem list * Acute pancreatitis * Hypertension * Chronic back pain * GERF/Gastritis Acute pancreatitis 56-year-old gentleman with past medical history significant for hypertension, GERD, chronic back pain, occasionally alcoholic who presents to the hospital with epigastric abdominal pain and nausea. He was found to be having elevated lipase [address] abdomen and pelvis was obtained which showed Few mildly prominent subcentimeter mesenteric lymph nodes in the right lower quadrant of uncertain etiology likely to be reactive in nature, Normal appendix. And Few tiny bilateral renal calculi, without hydronephrosis. PANCREAS: Unremarkable. off note he Underwent EGD and biopsy 11/10/2016 showed moderate erosive gastritis. He was started on Protonix, was instructed to maintain antireflux regimen and avoid NSAIDs. * Admitted to general medicine floor for further management of acute pancreatitis * Monitor for worsening abdominal pain, fever, nausea, vomiting * Vital signs every shift * Continue with gentle IV hydration * IV Zofran 4 mg q6 prn for nausea * IV hydromorphone 1 mg every 4hr prn for pain management * Started clear liquid diet, will advance as tolerated * Monitor electrolytes and replete accordingly * Following Lipid profile results- normal * Triglycerides normal * Abdominal ultrasound-no gallstones Hypertension Continue home dose of lisinopril 20 mg daily GERD Continue IV pantoprazole 40 mg daily MaaloX as needed for heartburn DVT prophylaxis subcutaneous Lovenox Pain pathway Full code Clear liquid diet for now Problem List: 1. Pancreatitis 2. Abdominal pain Pain Ratin Pain Location: Abdomen Pain Goal: Remain pain free Pain Plan: Tylenol Dilaudid Tomorrow's Labs & Rationales: none MELISSA DAMON 12/26/16 0932: Attending MD Review Statement Attending Statement Attending MD Statement: examined this patient, discuss w/resident/PA/WINDOWS SYSTEM ADMIN, agreed w/resident/PA/WINDOWS SYSTEM ADMIN, discussed with family, reviewed EMR data (avail), discussed with nursing, discussed with case mgmt, reviewed images, amended to note Attending Assessment/Plan: Patient admitted for acute pancreatitis lipase 1187 elevated on admission trending down, advcance diet as tolerated , IVF gentle hydration, pain control. triglycerides wnl. resume home meds, PPI daily. Maalox prn nausea meds. gi/dvt prophyalxis full code.
[2016-12-26 14:31] VITALS: BP 140/80
--- NOTE | 2016-12-26 18:11 | Patient Discharge Instructions ---
Discharge Instructions General Discharge Information You were seen/treated for: Acute pancreatitis Elevated lipase You had these procedures: None Special Instructions: #Please follow-up with your primary care physician within 1 weeks after discharge #Please discuss the potentioal benefit of switching lisinopril to another class on anti-HTN with your PCP, as ACEI could increase the chance of pancreatitis. Diet Continue normal diet: Yes Activity Full Activity/No Limits: Yes Acute Coronary Syndrome Inclusion Criteria At DC or during hospital stay patient has or had the following: ACS DIAGNOSIS No Discharge Core Measures Meds if any: Prescribed or Continued at Discharge Meds if any: NOT Prescribed or Continued at Discharge Congestive Heart Failure Inclusion Criteria At DC or during hospital stay patient has or had the following: CHF DIAGNOSIS No Discharge Core Measures Meds if any: Prescribed or Continued at Discharge Meds if any: NOT Prescribed or Continued at Discharge Cerebrovascular accident Inclusion Criteria At DC or during hospital stay patient has or had the following: CVA/TIA Diagnosis No Discharge Core Measures Meds if any: Prescribed or Continued at Discharge Meds if any: NOT Prescribed or Continued at Discharge Venous thromboembolism Inclusion Criteria VTE Diagnosis No VTE Type NONE VTE Confirmed by (Test) NONE Discharge Core Measures - Per Current guidelines, there needs to be overlap - treatment for the first 5 days of Warfarin therapy. - If discharged on Warfarin prior to 5 days of - overlap therapy, the patient will need to be - assessed for post discharge needs including - *Post discharge parental anticoagulation - *Warfarin and/or parental anticoagulation education - *Follow up date to check INR post discharge At least 5 days overlap therapy as Inpatient No Meds if any: Prescribed or Continued at Discharge Note: Overlap Therapy is Warfarin and Anticoagulant Meds if any: NOT Prescribed or Continued at Discharge
--- NOTE | 2016-12-26 21:12 | NUR ---
PT STATING PAIN TO LOWER BACK 5-12/12, HISTORY OF MULTIPLE BACK SURGERIES, STATES HE TAKES FLEXERIL AND TRAMADOL AT HOME FOR BACK PAIN. CALL PLACED TO [employer]ESS [employer]PER[employer] REGARDING THIS, SEE NEW ORDER. FLEXERIL AND TRAMADOL ADMINISTERED ORDERED. WILL CONTINUE TO MONITOR
[2016-12-26 21:44] VITALS: BP 132/84
--- NOTE | 2016-12-26 22:09 | NUR ---
PT ASKING FOR SOMETHING TO HELP HIM SLEEP, STATING THAT HES FEELING "ANXIOUS ABOUT GOING HOME TOMORROW", STATING THAT HE FEELS READY TO GO HOME, BUT THE ANTICIPATION IS KEEPING HIM AWAKE. CALL PLACED TO [employer] TR[employer] REGARDING THIS, SEE NEW ORDER FOR MELATONIN- GIVEN ORDERED. WILL CONTINUE TO MONITOR.
[2016-12-27 06:43] VITALS: BP 120/80
--- NOTE | 2016-12-27 08:16 | PN- Housestaff ---
JOE SELLERS 12/27/16 0815: Subjective Follow-up For: pancraetitis Subjective: Subjective: patient was visited and examined. He does not offer any complaints. Had a good sleep and a very good heavy breakfast. I discussed the discharge plan with him. Objective: AOX3, patient is comfortable, not in acute distress, Physical exam: HEET: WNL, chest: clear lungs and S1S2 no murmur, Abd: soft. VS: WNL Assessment and paln: Mild uncomplicated pancreatitis. safe to be discharged. CMR was reviewed. Patient is on lisinopril that, in RCT, was shown to increase the chance on pancreatirtis.Patient was referred to his own pcp to discuss the risck/benefits of ACEI and discuss the possibility of switching to another class of anti-htn medication. Life style modification and risk starfication for pancraetitis was discussed with him. TTS 30 min Review of Systems Constitutional: Reports: no symptoms. Cardiovascular: Reports: no symptoms. Respiratory: Reports: no symptoms. Gastrointestinal: Denies: abdominal pain, bloating, constipation, diarrhea, distention, bowel incontinence, melena, nausea, bloody stool, changes in stool, vomiting, steatorrhea. Objective Last 24 Hrs of Vital Signs/I&O Vital Signs Date Time Temp Pulse Resp B/P B/P Pulse O2 O2 Flow FiO2 Mean Ox Delivery Rate 12/27 0643 98.0 64 20 120/80 94 Room Air 12/26 2144 98.0 69 20 132/84 97 Room Air 12/26 1805 132/70 12/26 1431 97.4 84 18 140/80 97 Room Air Intake & Output 12/27 1600 12/27 0800 12/27 0000 Intake Total 100 Output Total 400 Balance 100 -400 Intake, IV 0 Intake, Oral 100 Number 0 Bowel Movements Output, Urine 400 Physical Exam General Appearance: Alert, Oriented X3, Cooperative, No Acute Distress Skin: No Rashes, No Breakdown, No Significant Lesion Cardiovascular: Normal S1, Normal S2, No Murmurs Lungs: Clear to Auscultation, Normal Air Movement Abdomen: Soft, No Tenderness, No Hepatospenomegaly Extremities: No Cyanosis, No Edema, Normal Pulses Current Medications: Current Medications Sig/Jessica Start time Last Medication Dose Route Stop Time Status Admin Acetaminophen 650 MG Q4P PRN 12/26 1130 AC 12/26 PO 1805 Al Hydroxide/Mg 30 ML Q4-6 PRN PRN 12/26 1130 AC Hydroxide PO Cyclobenzaprine HCl 10 MG Q6-PRN PRN 12/26 2029 DC 12/26 PO 12/26 Cyclobenzaprine HCl 5 MG .STK-MED ONE 12/26 2025 DC PO 12/26 2026 Cyclobenzaprine HCl 5 MG .STK-MED ONE 12/26 2021 DC PO 12/26 2022 Dextrose/Sodium 1,000 ML Q6H 12/25 0915 DC 12/26 Chloride IV 0853 Enoxaparin Sodium 40 MG DAILY 12/25 1120 AC 12/26 SC 0859 Hydromorphone HCl 1 MG Q4P PRN 12/25 1000 AC 12/25 IV 1625 Lisinopril 20 MG 1900 12/25 1900 AC 12/26 PO 1805 Melatonin 5 MG AT BEDTIME 12/26 2200 AC 12/26 PO 2207 Ondansetron HCl 4 MG Q6P PRN 12/25 1000 AC IV Pantoprazole Sodium 40 MG DAILY 12/25 1000 AC 12/26 IV 0855 Tramadol HCl 50 MG ONCE ONE 12/26 2029 DC 12/26 PO 12/26 Last 24 Hrs of Lab/Piero Results Last 24 Hrs of Labs/Mics: Laboratory Tests 12/26/16 1035: Anion Gap 13, Estimated GFR > 60, BUN/Creatinine Ratio 8.8, Lipase 607 H Lines/Diet/Fluids Fluids/Infusions: none Lines: none Assessment/Plan Assessment: discussed above Problem List: 1. Pancreatitis Pain Ratin Pain Location: none Pain Goal: Remain pain free Pain Plan: none Tomorrow's Labs & Rationales: none MELISSA DAMON 12/27/16 0940: Attending MD Review Statement Attending Statement Attending MD Statement: examined this patient, discuss w/resident/PA/SCRIP CLERK, agreed w/resident/PA/SCRIP CLERK, discussed with family, reviewed EMR data (avail), discussed with nursing, discussed with case mgmt, reviewed images, amended to note Attending Assessment/Plan: Patient admitted for acute pancreatitis lipase 1187 elevated on admission trending down, advance diet as tolerated , IVF gentle hydration, pain control. triglycerides wnl. resume home meds, PPI daily. Maalox prn nausea meds. gi/dvt prophyalxis full code. anticipate d/c today
== END 2016-12-27 10:48 | DRG 282 ==
LOC: ERH 05:11 → ERHI 09:22 → ENRESERV 09:40 → ENTRNSPT 09:58 → EDTRNSPTSTS 10:14 → 2NA 10:20 → CMPTRNSPT 10:40 → 2NA 12-27 10:48
PROVIDERS: Emergency Medicine; ADMIT Internal Medicine
DX: K85.90 Acute pancreatitis without necrosis or infection, unspecified (principal); I10 Essential (primary) hypertension; K21.9 Gastro-esophageal reflux disease without esophagitis; K76.0 Fatty (change of) liver, not elsewhere classified; N20.0 Calculus of kidney; K29.70 Gastritis, unspecified, without bleeding
CPT/HCPCS: 2NAP; 36415; 81003; 82436; 93005; 93010; 96361; 96374; 96375; 96376; 99291; J0131; J1650; J2405; J2765; J7042